=== PATIENT | female | born 1935 | race Two or more races ===

== ENCOUNTER 2021-04-25 15:27 | Emergency (ER) | payer MEDICARE, OTHER ==
[~2021-04-25] VITALS: Ht 160 cm; Wt 77.0 kg
[2021-04-25] MEDS ORDERED: OMEP20CA14 PO (15:41)
[2021-04-25] MEDS ORDERED: AMLO5TAB88 PO (15:41)
[2021-04-25] MEDS ORDERED: GABA-532 PO (15:41)
[2021-04-25] MEDS ORDERED: CLOP75TA33 PO (15:41)
[2021-04-25] MEDS ORDERED: OLME20TA22 PO (15:41)
[2021-04-25] MEDS ORDERED: PRIL20 PO (15:41)
[2021-04-25 17:44] LABS: BASOPHILS % 0.9 % (0.0-2.0); EOSINOPHILS % 3.3 % (0.0-5.0); HEMATOCRIT. 44.6 % (36.0-48.0); LYMPHOCYTES % 17.4 % (20.0-50.0); MEAN CORPUSCULAR HEMOGLOBIN 29.1 pg (28.0-32.0); MEAN CORPUSCULAR VOLUME 86.5 fL (81.0-99.0); MEAN PLATELET VOLUME 8.1 fl (7.4-10.4); MONOCYTES % 12.3 % (2.0-8.0); NEUTROPHILS % 66.1 % (40.0-76.0); PLATELET 340 x1000/uL (130-400); RED BLOOD CELL COUNT 5.16 mill/uL (4.2-5.4); RED CELL DISTRIBUTION WIDTH 13.9 % (11.6-14.6)
[2021-04-25 17:50] LABS: CHLORIDE 97 mEq/L (98-107)
[2021-04-25 19:23] VITALS: BP 155/89
[2021-04-25 19:49] LABS: CLARITY URINE CLOUDY (CLEAR); COLOR URINE DARK YELLOW (YELLOW); KETONES URINE TRACE (NEGATIVE); LEUKOCYTE ESTERASE URINE 2+ (NEGATIVE); NITRITE URINE NEGATIVE (NEGATIVE); OCCULT BLOOD URINE NEGATIVE (NEGATIVE); PH URINE 5.5 (4.5-8.0); PROTEIN URINE TRACE (NEGATIVE)
== END 2021-04-25 20:29 | disposition home or self-care (01) ==
LOC: ER 15:27
DX: R10.9 Unspecified abdominal pain (principal); I25.2 Old myocardial infarction; I10 Essential (primary) hypertension; Z90.49 Acquired absence of other specified parts of digestive tract; Z98.890 Other specified postprocedural states
CPT/HCPCS: 36415; 80053; 81003; 85025; 93005; 99284